=== PATIENT | male | born 1940 | race Caucasian/White ===

== ENCOUNTER 2017-03-27 08:21 | Day surgery (SDC) | payer MEDICARE, OTHER ==
[~2017-03-27] VITALS: Ht 185.4 cm; Wt 84.4 kg
[~2017-03-27 08:21] MED LIST: ASPI81CH PO; DIAZ5 PO; HYDCHL12.5 PO; PROM25 PO; VITAMIN D33000 UNIT PO; ZESTRIL40 MG; Zestril30 MG PO
[2017-03-27] MEDS ORDERED: Cholest Off450 MG PO (08:35)
[2017-03-27] MEDS ORDERED: HYDCHL25 PO (08:40)
== END 2017-03-27 11:31 | disposition home or self-care (01) ==
LOC: ORSCSDS 08:21
PROVIDERS: Internal Medicine Gastroenterology
PROC: 0DBK8ZX Excision of Ascending Colon, Via Natural or Artificial Opening Endoscopic, Diagnostic (ICD-10-PCS; principal; 2017-03-27 09:45)
PROC: 0DBP8ZX Excision of Rectum, Via Natural or Artificial Opening Endoscopic, Diagnostic (ICD-10-PCS; principal; 2017-03-27 09:45)
PROC: 0DBM8ZX Excision of Descending Colon, Via Natural or Artificial Opening Endoscopic, Diagnostic (ICD-10-PCS; principal; 2017-03-27 09:45)
PROC: 0DBN8ZX Excision of Sigmoid Colon, Via Natural or Artificial Opening Endoscopic, Diagnostic (ICD-10-PCS; principal; 2017-03-27 09:45)
PROC: 0DBH8ZX Excision of Cecum, Via Natural or Artificial Opening Endoscopic, Diagnostic (ICD-10-PCS; principal; 2017-03-27 09:45)
DX: Z12.11 Encounter for screening for malignant neoplasm of colon (principal); D12.0 Benign neoplasm of cecum; D12.2 Benign neoplasm of ascending colon; D12.4 Benign neoplasm of descending colon; D12.5 Benign neoplasm of sigmoid colon; K62.1 Rectal polyp; K64.8 Other hemorrhoids; I10 Essential (primary) hypertension; Z79.82 Long term (current) use of aspirin; Z79.899 Other long term (current) drug therapy
CPT/HCPCS: 88305; J7030; J7120

== ENCOUNTER → 2019-08-08 | Outpatient (CLI) | payer MEDICARE, OTHER ==
[~2019-08-08] MED LIST changes: +Cholest Off450 MG PO; +HYDCHL25 PO
[2019-08-08 11:38] LABS: Source, Urine Clean Catch
[2019-08-08 12:13] LABS: Bacteria Not Seen /hpf; Red Blood Cells, Urine 0-2 /hpf (0-2); Squamous Epithelial Cells Not Seen /hpf (Few); White Blood Cells, Urine 0-2 /hpf (0-5)
== END | disposition home or self-care (01) ==
LOC: LAB EV 10:50 → LAB SHORT 10:50
PROVIDERS: Physician Assistant
DX: R31.21 Asymptomatic microscopic hematuria (principal)
CPT/HCPCS: 81015

== ENCOUNTER 2020-05-13 10:49 | Day surgery (SDC) | payer MEDICARE, OTHER ==
[~2020-05-13] VITALS: Ht 190.5 cm; Wt 84.3 kg
[~2020-05-13 10:49] MED LIST changes: +Aspir 8181 MG PO; -ZESTRIL40 MG; +ZESTRIL40 MG PO
--- NOTE | 2020-05-13 13:21 | NUR ---
05/13/20 1321 Arpit Aguilera PT HAD PVCS THROUGHOUT COLONOSCOPY. DR STEINBERG AWARE. PRIOR TO DISCHARGE, DR STEINBERG ORDERED TO RUN A 12 LEAD EKG. EKG DONE. PT AWAKE, ALERT, ORIENTED. DENIES ANY PAIN OR CHEST PAIN. PT DENIES ANY DIZZINESS OR NAUSEA. PT SMILING. RN ENCOURAGED PT TO FOLLOW UP WITH PCP CONCERNING HEART RHYTHM. RN WILL SEND A COPY OF 12 LEAD EKG AND 3 LEAD EKG TO PCP PER DR. STEINBERG ORDER.
== END 2020-05-13 13:21 | disposition home or self-care (01) ==
LOC: ORSCSDS 10:49
PROVIDERS: Internal Medicine Gastroenterology
PROC: 0DJD8ZZ Inspection of Lower Intestinal Tract, Via Natural or Artificial Opening Endoscopic (ICD-10-PCS; principal; 2020-05-13 12:30)
DX: Z12.11 Encounter for screening for malignant neoplasm of colon (principal); Z86.010 Personal history of colon polyps; Q43.8 Other specified congenital malformations of intestine; K64.4 Residual hemorrhoidal skin tags; I10 Essential (primary) hypertension; E78.5 Hyperlipidemia, unspecified; Z79.82 Long term (current) use of aspirin; Z79.899 Other long term (current) drug therapy
CPT/HCPCS: 93005; 93010; J2704; J7120

== ENCOUNTER → 2021-05-13 | Outpatient (CLI) | payer MEDICARE ==
[2021-05-13 10:19] LABS: BASOPHILS ABSOLUTE AUTO 0.04 K/mm3 (0.00-0.23); BASOPHILS PERCENT AUTO 0 % (0-2); EOSINOPHILS ABSOLUTE AUTO 0.02 K/mm3 (0.00-0.68); EOSINOPHILS PERCENT AUTO 0 % (0-6); Hematocrit 39.9 % (37.0-53.0); Hemoglobin 13.8 g/dL (13.5-17.5); IMMATURE GRAN ABSOLUTE AUTO 0.04 K/mm3 (0.00-0.10); IMMATURE GRAN PERCENT AUTO 0 % (0-1); LYMPHOCYTES ABSOLUTE AUTO 1.02 K/mm3 (0.84-5.20); LYMPHOCYTES PERCENT AUTO 8 % (21-46); MONOCYTES ABSOLUTE AUTO 1.07 K/mm3 (0.16-1.47); MONOCYTES PERCENT AUTO 9 % (4-13); Mean Corpuscular HGB 33.1 pg (26.0-34.0); Mean Corpuscular HGB Conc 34.6 g/dL (31.5-36.5); Mean Corpuscular Volume 96 fL (80-100); NEUTROPHILS ABSOLUTE AUTO 10.44 K/mm3 (1.96-9.15); NEUTROPHILS PERCENT AUTO 83 % (41-73); Platelet Count 342 K/mm3 (150-400); RDW Coefficient Variation 13.2 % (11.7-14.2); RDW Standard Deviation 46.5 fL (35.1-46.3); Red Blood Cell Count 4.17 M/mm3 (4.30-5.90); White Blood Cell Count 12.63 K/mm3 (4.00-11.30)
[2021-05-13 10:34] LABS: Albumin, Blood 3.6 g/dL (3.4-5.0); Albumin/Globulin Ratio 1.2 (0.8-1.8); Bilirubin, Total 0.7 mg/dL (0.1-1.0); Calcium, Blood 9.3 mg/dL (8.5-10.1); Creatinine, Blood 1.73 mg/dL (0.60-1.20); Globulin, Blood 3.1 g/dL (2.2-4.0); Potassium, Blood 3.4 mmol/L (3.5-5.5); Total Protein, Blood 6.7 g/dL (6.4-8.2); Uric Acid, Blood 7.7 mg/dL (3.5-7.2)
== END ==
LOC: LAB SHORT 10:12
PROVIDERS: Physician Assistant
DX: M79.671 Pain in right foot (principal)
CPT/HCPCS: 80053; 84550; 85025

== ENCOUNTER → 2025-02-24 | Outpatient (CLI) | payer MEDICARE ==
[2025-02-24 11:20] LABS: BASOPHILS ABSOLUTE AUTO 0.05 K/mm3 (0.00-0.23); BASOPHILS PERCENT AUTO 1 % (0-2); EOSINOPHILS ABSOLUTE AUTO 0.15 K/mm3 (0.00-0.68); EOSINOPHILS PERCENT AUTO 2 % (0-6); Hematocrit 38.7 % (37.0-53.0); Hemoglobin 13.7 g/dL (13.5-17.5); IMMATURE GRAN ABSOLUTE AUTO 0.02 K/mm3 (0.00-0.10); IMMATURE GRAN PERCENT AUTO 0 % (0-1); LYMPHOCYTES ABSOLUTE AUTO 0.99 K/mm3 (0.84-5.20); LYMPHOCYTES PERCENT AUTO 10 % (21-46); MONOCYTES ABSOLUTE AUTO 0.83 K/mm3 (0.16-1.47); MONOCYTES PERCENT AUTO 8 % (4-13); Mean Corpuscular HGB Conc 35.4 g/dL (31.5-36.5); Mean Corpuscular Volume 97 fL (80-100); NEUTROPHILS ABSOLUTE AUTO 8.08 K/mm3 (1.96-9.15); NEUTROPHILS PERCENT AUTO 80 % (41-73); NRBC ABSOLUTE 0.00 K/mm3 (0.00-0.02); NRBC Auto 0.0 /100 WBC (0.0-0.2); Platelet Count 322 K/mm3 (150-400); RDW Coefficient Variation 13.2 % (11.7-14.2); RDW Standard Deviation 46.2 fL (35.1-46.3)
[2025-02-24 11:31] LABS: Alanine Aminotransfer (ALT/SGP 19.0 U/L (12-78); Albumin, Blood 3.6 g/dL (3.4-5.0); Albumin/Globulin Ratio 1.1 (0.8-1.8); Anion Gap 11.0 mmol/L (3-11); Aspartate Aminotrans (AST/SGOT 23.0 U/L (12-37); Bilirubin, Total 0.6 mg/dL (0.1-1.0); Blood Urea Nitrogen 41.0 mg/dL (8-24); CO2, Blood 30.0 mmol/L (21-32); Calcium, Blood 8.9 mg/dL (8.5-10.1); Chloride, Blood 104.0 mmol/L (98-108); Creatinine, Blood 1.76 mg/dL (0.60-1.20); Globulin, Blood 3.2 g/dL (2.2-4.0); Glucose, Blood 86.0 mg/dL (70-99); Potassium, Blood 3.1 mmol/L (3.5-5.5); Sodium, Blood 142.0 mmol/L (136-145); Total Protein, Blood 6.8 g/dL (6.4-8.2)
[2025-02-24 12:03] LABS: PSA, %Free 10.8 %; PSA, Free 0.016 ng/mL; Prostate Specific Antigen 0.148 ng/mL (0.000-4.000)
== END | disposition home or self-care (01) ==
LOC: LAB 11:16 → LAB SHORT 11:16
PROVIDERS: Physician Assistant
DX: R52 Pain, unspecified (principal); Z85.46 Personal history of malignant neoplasm of prostate
CPT/HCPCS: 80053; 84153; 84154; 85025; 85651